=== PATIENT | male | born 1945 | race Two or more races ===

== ENCOUNTER 2023-08-14 17:50 | Inpatient (IN) | payer MEDICARE ==
[~2023-08-14] VITALS: Ht 162.6 cm; Wt 51.1 kg
[2023-08-14] MEDS ORDERED: SODIUM CHLORIDE 0.9% 100 ML ONE (18:27)
[2023-08-14] MEDS ORDERED: IOHEXOL 350 MG/ML 100 ML VIAL ONE (18:27)
[2023-08-14 18:33] LABS: BASOPHILS % (AUTO) 0.4 % (0.0-2.0); EOSINOPHILS % (AUTO) 0.3 % (1.0-6.0); HEMATOCRIT 40.9 % (41-53); HEMOGLOBIN 13.6 g/dL (13.5-17.5); LYMPHOCYTES # (AUTO) 0.8 K/uL (1.0-4.8); LYMPHOCYTES % (AUTO) 7.5 % (22.0-44.0); MEAN CORPUSCULAR HEMOGLOBIN 30.8 pg (26.0-34.0); MEAN CORPUSCULAR HGB CONC 33.3 G/dL (31.0-37.0); MEAN CORPUSCULAR VOLUME 93 fL (80-100); MONOCYTES # (AUTO) 0.4 K/uL (0.1-1.0); MONOCYTES % (AUTO) 3.7 % (2.0-9.0); PLATELET COUNT (AUTO) 251 K/uL (150-450); RED BLOOD CELL COUNT(AUTO) 4.42 MIL/uL (4.50-5.90); RED CELL DISTRIBUTION WIDTH 15.4 % (11.5-14.5); WHITE BLOOD COUNT (AUTO) 10.2 K/uL (4.5-11.0)
[2023-08-14 18:39] LABS: ANION GAP 10 mmol/L (8-16); CALCIUM, TOTAL 10.5 mg/dL (8.8-10.5); CARBON DIOXIDE 28 mmol/L (22-29); CHLORIDE 102 mmol/L (98-107); CREATININE 1.11 mg/dL (0.60-1.30); GLOMERULAR FILTR. RATE CALC > 60 mL/min (>60); GLUCOSE,RANDOM 160 mg/dL (70-110); POTASSIUM 3.6 mmol/L (3.5-5.1); SODIUM SERUM 140 mmol/L (136-145); UREA NITROGEN, BLOOD 19 mg/dL (7-18)
[2023-08-14 18:44] LABS: ALANINE AMINOTRANSFERASE 25 U/L (12-78); ALBUMIN 4.4 g/dL (3.4-5.0); ALKALINE PHOSPHATASE 63 U/L (46-116); ASPARTATE AMINOTRANSFERASE 27 U/L (15-37); BILIRUBIN,TOTAL 0.5 mg/dL (0.1-1.0); TOTAL PROTEIN, SERUM 8.2 g/dL (6.4-8.2)
[2023-08-14 18:45] LABS: NEUTROPHILS % (AUTO) 88.1 % (40.0-70.0)
[2023-08-14 18:46] LABS: TROPONIN I-HIGH SENSITIVITY 9 ng/L (<76)
[2023-08-14 19:00] VITALS: PULSE 73; RESP 20; O2SAT 100
[2023-08-14] MEDS ORDERED: FentaNYL CIT 1000MCG/0.9% NACL 100 ML IV PRN (19:15)
[2023-08-14] MEDS ORDERED: 0.9% SODIUM CHLORIDE 10 ML SYRINGE IVP PRN (19:15)
[2023-08-14] MEDS: NiCARDipine HCL 25 MG in SODIUM CHLORIDE 0.9% 240 ML IV PRN ×2 (19:16→19:25)
[2023-08-14] MEDS: PROPOFOL 1000 MG/ISO-OSM 100 ML IV PRN ×2 (19:16→19:25)
[2023-08-14] MEDS: LevETIRAcetam 1,000 MG in DEXTROSE 5%-WATER 100 ML IV ONE (19:43)
[2023-08-14] MEDS: ROCURONIUM BROMIDE 10 MG/ML 5 ML VIAL IVP ONE (19:44)
[2023-08-14] MEDS: ETOMIDATE 2 MG/ML 10 ML VIAL IVP ONE (19:44)
[2023-08-14 20:10] LABS: ABG BASE EXCESS -3.8 mmol/L (-2.0-3.0); ABG CARBOXYHEMOGLOBIN 0.8 % (0.0-1.5); ABG HCO3 21.3 mmol/L (22.0-26.0); ABG METHEMOGLOBIN 0.8 % (0.0-1.5); ABG OXYGEN CONTENT 21.6 mL/dL (15.0-23.0); ABG OXYGEN SATURATION 99.9 % (95.0-98.0); ABG OXYHEMOGLOBIN 98.3 % (94.0-100.0); ABG PCO2 45 mmHg (35-45); ABG PH 7.317 (7.35-7.450); ABG TOTAL HEMOGLOBIN 15.1 G/dL (12.0-18.0); PO2, ARTERIAL BG 317.6 mmHg (75.0-83.0); SOURCE, BLOOD GAS ARTERIAL; TEMPERATURE, FAHRENHEIT, BG 98.6 FAHREN (96.0-98.6)
[2023-08-14 20:11] LABS: O2 DEVICE,BLOOD GAS VENTILATOR (ROOM AIR); PEEP,BG 5 cm H2O; SITE, BLOOD GAS RT BRACHIAL; SPONTANEOUS VT, BG 359 ml; VT, ABG 400 ml
[2023-08-14 20:27] LABS: APPEARANCE,URINE CLEAR (CLEAR); BILIRUBIN,URINE NEGATIVE (NEGATIVE); COLOR,URINE COLORLESS (YELLOW); GLUCOSE, URINE (UA) NEGATIVE (NEGATIVE); KETONES,URINE NEGATIVE (NEGATIVE); LEUKOCYTE ESTERASE ,URINE NEGATIVE (NEGATIVE); NITRATE,URINE NEGATIVE (NEGATIVE); OCCULT BLOOD,URINE MODERATE (NEGATIVE); PROTEIN,URINE 30-70 mg/dL (NEGATIVE); SPECIFIC GRAVITIY, URINE 1.015 (1.003-1.030); UROBILINOGEN,URINE <=1.0 mg/dL (<=1.0)
[2023-08-14 20:33] LABS: AMPHET/METH SCREEN,URINE NEGATIVE (NEGATIVE); BARBITURATE SCREEN, URINE NEGATIVE (NEGATIVE); BENZODIAZEPINES SCREEN,URINE NEGATIVE (NEGATIVE); CANNABINOID SCREEN,URINE NEGATIVE (NEGATIVE); COCAINE SCREEN,URINE NEGATIVE (NEGATIVE); METHADONE SCREEN, URINE NEGATIVE (NEGATIVE); OPIATE SCREEN,URINE NEGATIVE (NEGATIVE); PHENCYCLIDINE SCREEN,URINE NEGATIVE (NEGATIVE)
[2023-08-14 20:36] LABS: ALCOHOL, URINE DRUG SCREEN NEGATIVE (NEGATIVE)
[2023-08-14 20:49] LABS: BACTERIA,URINE None Seen /HPF (None Seen); RBC,URINE None Seen /HPF (0-2); SQUAMOUS EPITHELIAL CELL,UR Few /LPF (None Seen); WBC,URINE None Seen /HPF (0-5)
[2023-08-14] MEDS: DOCUSATE SODIUM 100 MG CAPSULE PO SCH (21:00)
[2023-08-14] MEDS ORDERED: MIDAZOLAM HCL 2 MG/2 ML VIAL IVP PRN (21:15)
[2023-08-14 22:30] VITALS: PULSE 65; RESP 20; O2SAT 100
[2023-08-14 23:07] LABS: TROPONIN I-HIGH SENSITIVITY 27 ng/L (<76)
[2023-08-14] MEDS: CHLORHEXIDINE GLUCONATE 2% TOWELETTE [2'S/6'S] TP SCH (23:15)
[2023-08-14] MEDS: MANNITOL 25%-12.5 GM/50 ML VIAL IVP ONE (23:16)
[2023-08-14] MEDS: FAMOTIDINE 20 MG/2 ML VIAL IVP SCH (23:16)
[2023-08-15] VITALS (15 sets, daily range): BP systolic 92–137; BP diastolic 50–97; PULSE 59–90; RESP 20–28; TEMP 99.2–100; O2SAT 98–100
[2023-08-15] MEDS: ACETAMINOPHEN 325 MG TABLET PO PRN (01:23)
[2023-08-15 06:14] LABS: BASOPHILS % (AUTO) 0.1 % (0.0-2.0); EOSINOPHILS % (AUTO) 0 % (1.0-6.0); HEMATOCRIT 39.8 % (41-53); HEMOGLOBIN 13.5 g/dL (13.5-17.5); LYMPHOCYTES # (AUTO) 0.7 K/uL (1.0-4.8); LYMPHOCYTES % (AUTO) 6.3 % (22.0-44.0); MEAN CORPUSCULAR HEMOGLOBIN 30.9 pg (26.0-34.0); MEAN CORPUSCULAR HGB CONC 33.9 G/dL (31.0-37.0); MEAN CORPUSCULAR VOLUME 91 fL (80-100); MONOCYTES # (AUTO) 0.6 K/uL (0.1-1.0); MONOCYTES % (AUTO) 5.5 % (2.0-9.0); NEUTROPHILS # (AUTO) 9.3 K/uL (1.8-7.7); PLATELET COUNT (AUTO) 272 K/uL (150-450); RED BLOOD CELL COUNT(AUTO) 4.38 MIL/uL (4.50-5.90); RED CELL DISTRIBUTION WIDTH 15.2 % (11.5-14.5); WHITE BLOOD COUNT (AUTO) 10.5 K/uL (4.5-11.0)
[2023-08-15 06:19] LABS: NEUTROPHILS % (AUTO) 88.1 % (40.0-70.0)
[2023-08-15 06:26] LABS: CALCIUM, TOTAL 10.4 mg/dL (8.8-10.5); CREATININE 1.33 mg/dL (0.60-1.30); MAGNESIUM 2.3 mg/dL (1.80-2.40); POTASSIUM 3.5 mmol/L (3.5-5.1)
[2023-08-15] MEDS ORDERED: LORazepam 2 MG/ML VIAL IVP PRN (09:15)
[2023-08-16] VITALS (15 sets, daily range): BP systolic 109–150; BP diastolic 62–105; PULSE 66–106; RESP 20–28; TEMP 98–99.8; O2SAT 98–100
[2023-08-16 05:54] LABS: BASOPHILS % (AUTO) 0.2 % (0.0-2.0); EOSINOPHILS % (AUTO) 0.1 % (1.0-6.0); HEMATOCRIT 43.4 % (41-53); HEMOGLOBIN 14.4 g/dL (13.5-17.5); LYMPHOCYTES # (AUTO) 1.3 K/uL (1.0-4.8); LYMPHOCYTES % (AUTO) 9.6 % (22.0-44.0); MEAN CORPUSCULAR HEMOGLOBIN 30.3 pg (26.0-34.0); MEAN CORPUSCULAR HGB CONC 33.2 G/dL (31.0-37.0); MEAN CORPUSCULAR VOLUME 91 fL (80-100); MONOCYTES # (AUTO) 1.2 K/uL (0.1-1.0); NEUTROPHILS # (AUTO) 10.7 K/uL (1.8-7.7); NEUTROPHILS % (AUTO) 81.1 % (40.0-70.0); PLATELET COUNT (AUTO) 248 K/uL (150-450); RED BLOOD CELL COUNT(AUTO) 4.76 MIL/uL (4.50-5.90); RED CELL DISTRIBUTION WIDTH 15.8 % (11.5-14.5); WHITE BLOOD COUNT (AUTO) 13.2 K/uL (4.5-11.0)
[2023-08-16 05:59] LABS: CALCIUM, TOTAL 10.4 mg/dL (8.8-10.5); CREATININE 4.03 mg/dL (0.60-1.30); POTASSIUM 3.9 mmol/L (3.5-5.1)
[2023-08-16] MEDS: CefTRIAXone 1 GM/DEXTROSE 50 ML IV SCH (09:41)
[2023-08-16 14:05] LABS: HEMOGLOBIN A1C 5.7 % (3.8-5.6)
[2023-08-16] MEDS: DEXMEDETOMIDINE HCL 400 MCG in SODIUM CHLORIDE 0.9% 96 ML IV PRN (17:13)
[2023-08-16] MEDS: INSULIN LISPRO 100 UNITS/ML SQ PRN (18:22)
[2023-08-17] VITALS (15 sets, daily range): BP systolic 109–158; BP diastolic 56–93; PULSE 56–94; RESP 15–28; TEMP 98.5–100.3; O2SAT 97–99
[2023-08-17 00:06] LABS: GLUCOMETER DEV NAME(LOC) ICU.S6; GLUCOSE,POINT OF CARE 188 MG/DL (70-110)
[2023-08-17 05:37] LABS: BASOPHILS % (AUTO) 0.5 % (0.0-2.0); EOSINOPHILS % (AUTO) 0.4 % (1.0-6.0); HEMATOCRIT 38.8 % (41-53); HEMOGLOBIN 12.7 g/dL (13.5-17.5); LYMPHOCYTES # (AUTO) 0.7 K/uL (1.0-4.8); LYMPHOCYTES % (AUTO) 7.8 % (22.0-44.0); MEAN CORPUSCULAR HEMOGLOBIN 30.5 pg (26.0-34.0); MEAN CORPUSCULAR HGB CONC 32.7 G/dL (31.0-37.0); MEAN CORPUSCULAR VOLUME 93 fL (80-100); MONOCYTES # (AUTO) 0.8 K/uL (0.1-1.0); MONOCYTES % (AUTO) 8.5 % (2.0-9.0); NEUTROPHILS # (AUTO) 7.8 K/uL (1.8-7.7); NEUTROPHILS % (AUTO) 82.8 % (40.0-70.0); PLATELET COUNT (AUTO) 205 K/uL (150-450); RED BLOOD CELL COUNT(AUTO) 4.17 MIL/uL (4.50-5.90); RED CELL DISTRIBUTION WIDTH 15.7 % (11.5-14.5); WHITE BLOOD COUNT (AUTO) 9.4 K/uL (4.5-11.0)
[2023-08-17 05:52] LABS: ALBUMIN 3.6 g/dL (3.4-5.0); BILIRUBIN,TOTAL 0.5 mg/dL (0.1-1.0); CALCIUM, TOTAL 9.6 mg/dL (8.8-10.5); CREATININE 3.57 mg/dL (0.60-1.30); POTASSIUM 3.3 mmol/L (3.5-5.1); TOTAL PROTEIN, SERUM 7.2 g/dL (6.4-8.2)
[2023-08-17 06:20] LABS: GLUCOMETER DEV NAME(LOC) ICUN.5; GLUCOSE,POINT OF CARE 160 MG/DL (70-110)
[2023-08-17 06:20] LABS: GLUCOMETER DEV NAME(LOC) ICU.S6; GLUCOSE,POINT OF CARE 111 MG/DL (70-110)
[2023-08-17] MEDS: SODIUM CHLORIDE 0.9% 1,000 ML IV ONE (08:50)
[2023-08-17 12:00] LABS: GLUCOMETER DEV NAME(LOC) ICU.S6; GLUCOSE,POINT OF CARE 156 MG/DL (70-110)
[2023-08-17] MEDS: AmLODIPine BESYLATE 2.5 MG TABLET PO SCH (17:30)
[2023-08-17 19:10] LABS: GLUCOMETER DEV NAME(LOC) ICU.S6; GLUCOSE,POINT OF CARE 126 MG/DL (70-110)
[2023-08-17] MEDS: ALBUTEROL SULFATE 2.5 MG/0.5 ML NEB SOLUTION NEB PRN (20:39)
[2023-08-17] MEDS: IPRATROPIUM BROMIDE 0.5 MG/2.5 ML NEB SOLUTION NEB PRN (20:39)
[2023-08-17] MEDS: HydrALAZINE HCL 20 MG/ML VIAL IVP PRN (21:44)
[2023-08-18] VITALS (10 sets, daily range): BP systolic 96–144; BP diastolic 56–98; PULSE 67–87; RESP 14–26; TEMP 97.9–99.3; O2SAT 98–100
[2023-08-18 05:40] LABS: BASOPHILS % (AUTO) 0.7 % (0.0-2.0); EOSINOPHILS % (AUTO) 0.8 % (1.0-6.0); HEMATOCRIT 38.5 % (41-53); HEMOGLOBIN 12.7 g/dL (13.5-17.5); LYMPHOCYTES # (AUTO) 0.9 K/uL (1.0-4.8); LYMPHOCYTES % (AUTO) 12.9 % (22.0-44.0); MEAN CORPUSCULAR HEMOGLOBIN 30.5 pg (26.0-34.0); MEAN CORPUSCULAR HGB CONC 33.1 G/dL (31.0-37.0); MEAN CORPUSCULAR VOLUME 92 fL (80-100); MONOCYTES # (AUTO) 0.6 K/uL (0.1-1.0); MONOCYTES % (AUTO) 8.1 % (2.0-9.0); NEUTROPHILS # (AUTO) 5.4 K/uL (1.8-7.7); NEUTROPHILS % (AUTO) 77.5 % (40.0-70.0); PLATELET COUNT (AUTO) 203 K/uL (150-450); RED BLOOD CELL COUNT(AUTO) 4.18 MIL/uL (4.50-5.90); RED CELL DISTRIBUTION WIDTH 15.7 % (11.5-14.5); WHITE BLOOD COUNT (AUTO) 6.9 K/uL (4.5-11.0)
[2023-08-18 05:54] LABS: CALCIUM, TOTAL 10.3 mg/dL (8.8-10.5); CREATININE 1.94 mg/dL (0.60-1.30); POTASSIUM 3.4 mmol/L (3.5-5.1)
[2023-08-18 05:55] LABS: GLUCOMETER DEV NAME(LOC) ICU.S6; GLUCOSE,POINT OF CARE 119 MG/DL (70-110)
[2023-08-18 06:06] LABS: GLUCOMETER DEV NAME(LOC) ICUN.5; GLUCOSE,POINT OF CARE 107 MG/DL (70-110)
[2023-08-18] MEDS: MORPHINE SULFATE 2 MG/ML SYRINGE IVP PRN (07:51)
[2023-08-18] MEDS ORDERED: LABETALOL HCL 5 MG/ML 20 ML VIAL IVP PRN (09:15)
[2023-08-18 09:47] LABS: ABG BASE EXCESS -1.3 mmol/L (-2.0-3.0); ABG CARBOXYHEMOGLOBIN 0.4 % (0.0-1.5); ABG HCO3 24.1 mmol/L (22.0-26.0); ABG METHEMOGLOBIN 0.2 % (0.0-1.5); ABG OXYGEN CONTENT 19.5 mL/dL (15.0-23.0); ABG OXYGEN SATURATION 98.8 % (95.0-98.0); ABG OXYHEMOGLOBIN 98.2 % (94.0-100.0); ABG PCO2 33 mmHg (35-45); ABG PH 7.451 (7.35-7.450); ABG TOTAL HEMOGLOBIN 13.9 G/dL (12.0-18.0); PO2, ARTERIAL BG 157.3 mmHg (75.0-83.0); SOURCE, BLOOD GAS ARTERIAL; TEMPERATURE, FAHRENHEIT, BG 99.1 FAHREN (96.0-98.6)
[2023-08-18 09:51] LABS: ABG A-A DIFF O2 53.4 mmHg (10-20.0); ALLEN TEST, BLOOD GAS Positive; O2 DEVICE,BLOOD GAS VENTILATOR (ROOM AIR); SITE, BLOOD GAS RT BRACHIAL; VENT MODE, BG Press. Support Vent. (ROOM AIR)
[2023-08-18 09:52] LABS: PEEP,BG 0 cm H2O; PRESSURE SUPPORT, BG 5 cm H2O; SPONTANEOUS VT, BG 513 ml; VT, ABG 400 ml
[2023-08-18] MEDS ORDERED: SODIUM CHLORIDE 0.9% 250 ML IV ONE (11:31)
[2023-08-18] MEDS: POTASSIUM CHL 10 MEQ/WATER 50 ML IV SCH (11:32)
[2023-08-18 14:01] LABS: GLUCOMETER DEV NAME(LOC) ICU.S6; GLUCOSE,POINT OF CARE 165 MG/DL (70-110)
[2023-08-18] MEDS: AmLODIPine BESYLATE 5 MG TABLET PO ONE (15:31)
[2023-08-18 18:21] LABS: GLUCOMETER DEV NAME(LOC) ICU.S6; GLUCOSE,POINT OF CARE 157 MG/DL (70-110)
[2023-08-19] VITALS: BP 94/63; PULSE 58; RESP 12; TEMP 98.6
[2023-08-19 01:11] LABS: GLUCOMETER DEV NAME(LOC) ICU.S6; GLUCOSE,POINT OF CARE 137 MG/DL (70-110)
[2023-08-19 04:00] VITALS: BP 153/94; PULSE 74; RESP 14; TEMP 98.8
[2023-08-19 05:28] LABS: BASOPHILS % (AUTO) 0.3 % (0.0-2.0); EOSINOPHILS % (AUTO) 0.5 % (1.0-6.0); HEMATOCRIT 41.6 % (41-53); HEMOGLOBIN 13.9 g/dL (13.5-17.5); LYMPHOCYTES # (AUTO) 0.7 K/uL (1.0-4.8); MEAN CORPUSCULAR HEMOGLOBIN 30.7 pg (26.0-34.0); MEAN CORPUSCULAR HGB CONC 33.4 G/dL (31.0-37.0); MEAN CORPUSCULAR VOLUME 92 fL (80-100); MONOCYTES # (AUTO) 0.6 K/uL (0.1-1.0); MONOCYTES % (AUTO) 7.4 % (2.0-9.0); NEUTROPHILS # (AUTO) 6.7 K/uL (1.8-7.7); NEUTROPHILS % (AUTO) 82.8 % (40.0-70.0); PLATELET COUNT (AUTO) 228 K/uL (150-450); RED BLOOD CELL COUNT(AUTO) 4.53 MIL/uL (4.50-5.90); RED CELL DISTRIBUTION WIDTH 15.4 % (11.5-14.5); WHITE BLOOD COUNT (AUTO) 8.1 K/uL (4.5-11.0)
[2023-08-19 05:44] LABS: ANION GAP 12 mmol/L (8-16); CALCIUM, TOTAL 10.9 mg/dL (8.8-10.5); CARBON DIOXIDE 25 mmol/L (22-29); CHLORIDE 117 mmol/L (98-107); CREATININE 1.13 mg/dL (0.60-1.30); GLOMERULAR FILTR. RATE CALC > 60 mL/min (>60); GLUCOSE,RANDOM 180 mg/dL (70-110); POTASSIUM 3.4 mmol/L (3.5-5.1); SODIUM SERUM 154 mmol/L (136-145); UREA NITROGEN, BLOOD 30 mg/dL (7-18)
[2023-08-19 06:36] LABS: GLUCOMETER DEV NAME(LOC) ICUN.5; GLUCOSE,POINT OF CARE 144 MG/DL (70-110)
[2023-08-19 08:00] VITALS: BP 139/85; PULSE 79; RESP 16; TEMP 98.3
[2023-08-19] MEDS: AmLODIPine BESYLATE 5 MG TABLET PO SCH (08:10)
[2023-08-19] MEDS: DEXTROSE 5%-WATER 1,000 ML IV ONE (09:33)
[2023-08-19 12:00] VITALS: BP 89/56; PULSE 59; RESP 16; TEMP 98.8
[2023-08-19] MEDS: POTASSIUM CHL 10 MEQ/WATER 50 ML IV SCH (12:28)
[2023-08-19 15:06] LABS: GLUCOMETER DEV NAME(LOC) ICUN.5; GLUCOSE,POINT OF CARE 137 MG/DL (70-110)
[2023-08-19] MEDS: HydrALAZINE HCL 50 MG TABLET PO SCH (15:17)
[2023-08-19 16:00] VITALS: BP 145/96; PULSE 91; RESP 17; TEMP 99.1
[2023-08-19 18:41] LABS: GLUCOMETER DEV NAME(LOC) ICUN.5; GLUCOSE,POINT OF CARE 145 MG/DL (70-110)
[2023-08-19 20:00] VITALS: BP 147/90; PULSE 91; PULSE 96; RESP 16; TEMP 99.5
[2023-08-20] VITALS (7 sets, daily range): BP systolic 126–144; BP diastolic 68–87; PULSE 72–95; RESP 14–20; TEMP 97.3–99.8
[2023-08-20] MEDS: DEXTROSE 5%-WATER 1,000 ML IV SCH (02:35)
[2023-08-20 04:06] LABS: GLUCOMETER DEV NAME(LOC) ICUN.5; GLUCOSE,POINT OF CARE 170 MG/DL (70-110)
[2023-08-20 05:48] LABS: BASOPHILS % (AUTO) 0.4 % (0.0-2.0); EOSINOPHILS % (AUTO) 0.9 % (1.0-6.0); HEMATOCRIT 40.1 % (41-53); HEMOGLOBIN 13.2 g/dL (13.5-17.5); LYMPHOCYTES % (AUTO) 12.2 % (22.0-44.0); MEAN CORPUSCULAR HEMOGLOBIN 30.3 pg (26.0-34.0); MEAN CORPUSCULAR VOLUME 92 fL (80-100); MONOCYTES # (AUTO) 0.7 K/uL (0.1-1.0); MONOCYTES % (AUTO) 8.8 % (2.0-9.0); NEUTROPHILS # (AUTO) 6.2 K/uL (1.8-7.7); NEUTROPHILS % (AUTO) 77.7 % (40.0-70.0); PLATELET COUNT (AUTO) 210 K/uL (150-450); RED BLOOD CELL COUNT(AUTO) 4.36 MIL/uL (4.50-5.90); RED CELL DISTRIBUTION WIDTH 15.8 % (11.5-14.5)
[2023-08-20 06:39] LABS: ANION GAP 12 mmol/L (8-16); CALCIUM, TOTAL 10.5 mg/dL (8.8-10.5); CARBON DIOXIDE 23 mmol/L (22-29); CHLORIDE 121 mmol/L (98-107); CREATININE 1.09 mg/dL (0.60-1.30); GLOMERULAR FILTR. RATE CALC > 60 mL/min (>60); GLUCOSE,RANDOM 156 mg/dL (70-110); POTASSIUM 3.4 mmol/L (3.5-5.1); SODIUM SERUM 156 mmol/L (136-145); UREA NITROGEN, BLOOD 24 mg/dL (7-18)
[2023-08-20 06:40] LABS: GLUCOMETER DEV NAME(LOC) ICU.S6; GLUCOSE,POINT OF CARE 139 MG/DL (70-110)
[2023-08-20] MEDS ORDERED: POTASSIUM CHLORIDE 20 MEQ ER TABLET PO PRN (08:45)
[2023-08-20] MEDS: POTASSIUM CHL 10 MEQ/WATER 50 ML IV PRN (09:29)
[2023-08-20] MEDS: POTASSIUM CHL 10 MEQ/WATER 50 ML IV SCH (09:29)
[2023-08-20] MEDS: LOSARTAN POTASSIUM 25 MG TABLET PO SCH (09:29)
[2023-08-20] MEDS: LORazepam 2 MG/ML VIAL IVP PRN (11:14)
[2023-08-20 13:51] LABS: GLUCOMETER DEV NAME(LOC) ICU.S6; GLUCOSE,POINT OF CARE 112 MG/DL (70-110)
[2023-08-20] MEDS: CARVEDILOL 6.25 MG TABLET PO SCH (14:27)
[2023-08-20] MEDS: TAMSULOSIN HCL 0.4 MG CAPSULE PO SCH (15:30)
[2023-08-20 19:31] LABS: GLUCOMETER DEV NAME(LOC) ICUN.5; GLUCOSE,POINT OF CARE 143 MG/DL (70-110)
[2023-08-21] VITALS: BP 133/76; PULSE 87; RESP 19; TEMP 98.5
[2023-08-21 04:00] VITALS: BP 113/59; PULSE 74; PULSE 80; RESP 16; TEMP 98
[2023-08-21 05:30] LABS: EOSINOPHILS % (AUTO) 1.8 % (1.0-6.0); HEMOGLOBIN 12.6 g/dL (13.5-17.5); LYMPHOCYTES # (AUTO) 1.2 K/uL (1.0-4.8); LYMPHOCYTES % (AUTO) 15.1 % (22.0-44.0); MEAN CORPUSCULAR HEMOGLOBIN 30.8 pg (26.0-34.0); MEAN CORPUSCULAR HGB CONC 33.3 G/dL (31.0-37.0); MEAN CORPUSCULAR VOLUME 93 fL (80-100); MONOCYTES # (AUTO) 0.7 K/uL (0.1-1.0); MONOCYTES % (AUTO) 9.3 % (2.0-9.0); NEUTROPHILS # (AUTO) 5.7 K/uL (1.8-7.7); NEUTROPHILS % (AUTO) 72.8 % (40.0-70.0); PLATELET COUNT (AUTO) 217 K/uL (150-450); RED CELL DISTRIBUTION WIDTH 15.3 % (11.5-14.5); WHITE BLOOD COUNT (AUTO) 7.9 K/uL (4.5-11.0)
[2023-08-21 06:00] LABS: ANION GAP 13 mmol/L (8-16); CALCIUM, TOTAL 10.6 mg/dL (8.8-10.5); CARBON DIOXIDE 19 mmol/L (22-29); CHLORIDE 119 mmol/L (98-107); CREATININE 0.99 mg/dL (0.60-1.30); GLOMERULAR FILTR. RATE CALC > 60 mL/min (>60); GLUCOSE,RANDOM 172 mg/dL (70-110); POTASSIUM 3.5 mmol/L (3.5-5.1); SODIUM SERUM 151 mmol/L (136-145); UREA NITROGEN, BLOOD 19 mg/dL (7-18)
[2023-08-21 07:11] LABS: GLUCOMETER DEV NAME(LOC) ICUN.5; GLUCOSE,POINT OF CARE 157 MG/DL (70-110)
[2023-08-21 08:00] VITALS: BP 133/76; PULSE 91; RESP 17; TEMP 98.5
[2023-08-21] MEDS: AmLODIPine BESYLATE 10 MG TABLET PO SCH (08:55)
[2023-08-21] MEDS: LOSARTAN POTASSIUM 50 MG TABLET PO SCH (08:55)
[2023-08-21] MEDS: QUEtiapine FUMARATE 25 MG TABLET PO SCH (09:25)
[2023-08-21] MEDS: DEXTROSE 5%-WATER 1,000 ML IV SCH (10:25)
[2023-08-21 12:00] VITALS: BP 123/69; PULSE 66; RESP 13; TEMP 98.2
[2023-08-21 12:35] LABS: GLUCOMETER DEV NAME(LOC) ICUN.5; GLUCOSE,POINT OF CARE 173 MG/DL (70-110)
[2023-08-21 16:00] VITALS: BP 123/68; PULSE 79; RESP 15; TEMP 98.4
[2023-08-21 17:59] LABS: ANION GAP 11 mmol/L (8-16); CALCIUM, TOTAL 10.7 mg/dL (8.8-10.5); CARBON DIOXIDE 20 mmol/L (22-29); CHLORIDE 118 mmol/L (98-107); CREATININE 1.03 mg/dL (0.60-1.30); GLOMERULAR FILTR. RATE CALC > 60 mL/min (>60); GLUCOSE,RANDOM 187 mg/dL (70-110); POTASSIUM 3.8 mmol/L (3.5-5.1); SODIUM SERUM 149 mmol/L (136-145); UREA NITROGEN, BLOOD 21 mg/dL (7-18)
[2023-08-21 20:14] VITALS: BP 137/86; PULSE 89; RESP 18; TEMP 98.8
[2023-08-22] VITALS (10 sets, daily range): BP systolic 123–158; BP diastolic 75–98; PULSE 75–106; RESP 16–23; TEMP 97.8–101.7
[2023-08-22] MEDS: ACETAMINOPHEN 650 MG RECTAL SUPPOSITORY PR PRN (02:38)
[2023-08-22] MEDS: ACETAMINOPHEN 650 MG RECTAL SUPPOSITORY PR ONE (04:19)
[2023-08-22 04:41] LABS: GLUCOMETER DEV NAME(LOC) 5N.1D; GLUCOSE,POINT OF CARE 137 MG/DL (70-110)
[2023-08-22 06:21] LABS: BASOPHILS % (AUTO) 0.5 % (0.0-2.0); EOSINOPHILS % (AUTO) 0.3 % (1.0-6.0); HEMATOCRIT 38.5 % (41-53); HEMOGLOBIN 12.7 g/dL (13.5-17.5); LYMPHOCYTES # (AUTO) 1.1 K/uL (1.0-4.8); LYMPHOCYTES % (AUTO) 14.7 % (22.0-44.0); MEAN CORPUSCULAR HEMOGLOBIN 30.1 pg (26.0-34.0); MEAN CORPUSCULAR HGB CONC 32.9 G/dL (31.0-37.0); MEAN CORPUSCULAR VOLUME 92 fL (80-100); MONOCYTES # (AUTO) 0.7 K/uL (0.1-1.0); MONOCYTES % (AUTO) 9.4 % (2.0-9.0); NEUTROPHILS # (AUTO) 5.5 K/uL (1.8-7.7); NEUTROPHILS % (AUTO) 75.1 % (40.0-70.0); PLATELET COUNT (AUTO) 212 K/uL (150-450); RED CELL DISTRIBUTION WIDTH 15.6 % (11.5-14.5); WHITE BLOOD COUNT (AUTO) 7.4 K/uL (4.5-11.0)
[2023-08-22 06:46] LABS: ANION GAP 10 mmol/L (8-16); CARBON DIOXIDE 22 mmol/L (22-29); CHLORIDE 120 mmol/L (98-107); CREATININE 0.99 mg/dL (0.60-1.30); GLOMERULAR FILTR. RATE CALC > 60 mL/min (>60); GLUCOSE,RANDOM 150 mg/dL (70-110); POTASSIUM 3.3 mmol/L (3.5-5.1); SODIUM SERUM 152 mmol/L (136-145); UREA NITROGEN, BLOOD 17 mg/dL (7-18)
[2023-08-22] MEDS ORDERED: SODIUM CHLORIDE 0.9% 250 ML IV ONE (09:16)
[2023-08-22 12:40] LABS: GLUCOMETER DEV NAME(LOC) 5S.1B; GLUCOSE,POINT OF CARE 138 MG/DL (70-110)
[2023-08-22 12:41] LABS: GLUCOMETER DEV NAME(LOC) 5S.1B; GLUCOSE,POINT OF CARE 153 MG/DL (70-110)
[2023-08-22] MEDS: *CLINICAL-LEVOFLOXACIN IVPB DOSING CLINICAL ONE (22:00)
[2023-08-22] MEDS: DEXTROSE 5%-0.45% SODIUM CHL 1,000 ML IV SCH (22:04)
[2023-08-22] MEDS: LEVOFLOXACIN 750 MG/D5% WATER 150 ML IV SCH (23:26)
[2023-08-23] VITALS (7 sets, daily range): BP systolic 120–152; BP diastolic 63–96; PULSE 72–87; RESP 18–20; TEMP 98–99.9
[2023-08-23 05:40] LABS: GLUCOMETER DEV NAME(LOC) 5N.1D; GLUCOSE,POINT OF CARE 113 MG/DL (70-110)
[2023-08-23 05:40] LABS: GLUCOMETER DEV NAME(LOC) 5N.1D; GLUCOSE,POINT OF CARE 189 MG/DL (70-110)
[2023-08-23 05:45] LABS: GLUCOMETER DEV NAME(LOC) 5N.1D; GLUCOSE,POINT OF CARE 130 MG/DL (70-110)
[2023-08-23 08:10] LABS: BASOPHILS % (AUTO) 0.7 % (0.0-2.0); EOSINOPHILS % (AUTO) 0.7 % (1.0-6.0); HEMATOCRIT 39.7 % (41-53); HEMOGLOBIN 13.2 g/dL (13.5-17.5); LYMPHOCYTES # (AUTO) 1.2 K/uL (1.0-4.8); LYMPHOCYTES % (AUTO) 12.9 % (22.0-44.0); MEAN CORPUSCULAR HEMOGLOBIN 30.7 pg (26.0-34.0); MEAN CORPUSCULAR HGB CONC 33.2 G/dL (31.0-37.0); MEAN CORPUSCULAR VOLUME 93 fL (80-100); MONOCYTES # (AUTO) 1.1 K/uL (0.1-1.0); MONOCYTES % (AUTO) 11.6 % (2.0-9.0); NEUTROPHILS # (AUTO) 6.9 K/uL (1.8-7.7); NEUTROPHILS % (AUTO) 74.1 % (40.0-70.0); PLATELET COUNT (AUTO) 235 K/uL (150-450); RED BLOOD CELL COUNT(AUTO) 4.28 MIL/uL (4.50-5.90); RED CELL DISTRIBUTION WIDTH 15.4 % (11.5-14.5); WHITE BLOOD COUNT (AUTO) 9.3 K/uL (4.5-11.0)
[2023-08-23 08:25] LABS: ANION GAP 11 mmol/L (8-16); CALCIUM, TOTAL 10.7 mg/dL (8.8-10.5); CARBON DIOXIDE 23 mmol/L (22-29); CHLORIDE 120 mmol/L (98-107); CREATININE 1.06 mg/dL (0.60-1.30); GLOMERULAR FILTR. RATE CALC > 60 mL/min (>60); GLUCOSE,RANDOM 135 mg/dL (70-110); POTASSIUM 3.7 mmol/L (3.5-5.1); SODIUM SERUM 154 mmol/L (136-145); UREA NITROGEN, BLOOD 23 mg/dL (7-18)
[2023-08-23 13:16] LABS: GLUCOMETER DEV NAME(LOC) 5S.1B; GLUCOSE,POINT OF CARE 153 MG/DL (70-110)
[2023-08-23 18:25] LABS: GLUCOMETER DEV NAME(LOC) 5N.2C; GLUCOSE,POINT OF CARE 168 MG/DL (70-110)
[2023-08-23 21:00] LABS: GLUCOMETER DEV NAME(LOC) 5N.1D; GLUCOSE,POINT OF CARE 161 MG/DL (70-110)
[2023-08-24] MEDS ORDERED: SODIUM CHLORIDE 0.9% 250 ML IV ONE (00:03)
[2023-08-24 03:42] VITALS: BP 144/90; PULSE 77; RESP 19; TEMP 98.9
[2023-08-24 06:40] LABS: GLUCOMETER DEV NAME(LOC) 5N.1D; GLUCOSE,POINT OF CARE 151 MG/DL (70-110)
[2023-08-24 07:06] LABS: PARATHYROID HORMONE INTACT 60 pg/mL (15-65)
[2023-08-24 07:23] LABS: ANION GAP 11 mmol/L (8-16); CALCIUM, TOTAL 11.3 mg/dL (8.8-10.5); CARBON DIOXIDE 22 mmol/L (22-29); CHLORIDE 123 mmol/L (98-107); CREATININE 1.11 mg/dL (0.60-1.30); GLOMERULAR FILTR. RATE CALC > 60 mL/min (>60); GLUCOSE,RANDOM 167 mg/dL (70-110); POTASSIUM 3.7 mmol/L (3.5-5.1); SODIUM SERUM 156 mmol/L (136-145); UREA NITROGEN, BLOOD 22 mg/dL (7-18)
[2023-08-24 07:48] VITALS: BP 151/88; PULSE 75; RESP 18; TEMP 98.8
[2023-08-24] MEDS: LEVOFLOXACIN 750 MG/D5% WATER 150 ML IV SCH (10:29)
[2023-08-24] MEDS: CALCITONIN,SALMON,SYNTHETIC 200 UNITS/ML 2 ML VIAL SQ SCH (10:39)
[2023-08-24 11:26] VITALS: BP 141/48; PULSE 82; RESP 17; TEMP 98
[2023-08-24 14:17] LABS: GLUCOMETER DEV NAME(LOC) 5N.2C; GLUCOSE,POINT OF CARE 206 MG/DL (70-110)
[2023-08-24 15:00] VITALS: BP 119/86; PULSE 73; RESP 16; TEMP 97.7
[2023-08-24 17:56] LABS: GLUCOMETER DEV NAME(LOC) 5N.1D; GLUCOSE,POINT OF CARE 118 MG/DL (70-110)
[2023-08-24 20:18] VITALS: BP 118/90; PULSE 68; RESP 16; TEMP 98.3
[2023-08-24 21:41] LABS: GLUCOMETER DEV NAME(LOC) 5N.1D; GLUCOSE,POINT OF CARE 196 MG/DL (70-110)
[2023-08-25] VITALS (8 sets, daily range): BP systolic 110–140; BP diastolic 68–89; PULSE 72–84; RESP 16–20; TEMP 98–100.1
[2023-08-25 05:31] LABS: GLUCOMETER DEV NAME(LOC) 5N.1D; GLUCOSE,POINT OF CARE 129 MG/DL (70-110)
[2023-08-25] MEDS ORDERED: SODIUM CHLORIDE 0.9% 250 ML IV ONE (06:42)
[2023-08-25 07:24] LABS: ANION GAP 11 mmol/L (8-16); CALCIUM, TOTAL 10.1 mg/dL (8.8-10.5); CARBON DIOXIDE 23 mmol/L (22-29); CHLORIDE 120 mmol/L (98-107); CREATININE 0.97 mg/dL (0.60-1.30); GLOMERULAR FILTR. RATE CALC > 60 mL/min (>60); GLUCOSE,RANDOM 155 mg/dL (70-110); PHOSPHORUS 1.9 mg/dL (2.5-4.9); POTASSIUM 3.4 mmol/L (3.5-5.1); SODIUM SERUM 154 mmol/L (136-145); UREA NITROGEN, BLOOD 21 mg/dL (7-18)
[2023-08-25] MEDS ORDERED: MAGNESIUM HYDROXIDE SUSPENSION 30 ML UDCUP PO PRN (11:30)
[2023-08-25] MEDS: DEXTROSE 5%-WATER 1,000 ML IV SCH (11:44)
[2023-08-25 12:28] LABS: ANION GAP 11 mmol/L (8-16); CALCIUM, TOTAL 9.6 mg/dL (8.8-10.5); CARBON DIOXIDE 22 mmol/L (22-29); CHLORIDE 122 mmol/L (98-107); CREATININE 0.89 mg/dL (0.60-1.30); GLOMERULAR FILTR. RATE CALC > 60 mL/min (>60); GLUCOSE,RANDOM 155 mg/dL (70-110); PHOSPHORUS 1.8 mg/dL (2.5-4.9); POTASSIUM 3.2 mmol/L (3.5-5.1); SODIUM SERUM 155 mmol/L (136-145); UREA NITROGEN, BLOOD 18 mg/dL (7-18)
[2023-08-25 12:30] LABS: GLUCOMETER DEV NAME(LOC) 5N.1D; GLUCOSE,POINT OF CARE 147 MG/DL (70-110)
[2023-08-25] MEDS: DEXTROSE 50%-WATER 25 GM/50 ML SYRINGE IVP PRN (13:07)
[2023-08-25] MEDS: BISACODYL 10 MG RECTAL RECTAL SUPPOSITORY PR PRN (13:48)
[2023-08-25 14:01] LABS: GLUCOMETER DEV NAME(LOC) 5N.1D; GLUCOSE,POINT OF CARE 64 MG/DL (70-110)
[2023-08-25 14:01] LABS: GLUCOMETER DEV NAME(LOC) 5N.1D; GLUCOSE,POINT OF CARE 146 MG/DL (70-110)
[2023-08-25] MEDS ORDERED: POTASSIUM PHOS,M-BASIC-D-BASIC 20 MEQ in DEXTROSE 5%-WATER 100 ML IV ONE (14:30)
[2023-08-25] MEDS: SODIUM PHOS,M-BASIC-D-BASIC 10 MMOL in DEXTROSE 5%-WATER 100 ML IV ONE (17:24)
[2023-08-25 18:58] LABS: ANION GAP 10 mmol/L (8-16); CALCIUM, TOTAL 9.7 mg/dL (8.8-10.5); CARBON DIOXIDE 23 mmol/L (22-29); CHLORIDE 119 mmol/L (98-107); CREATININE 0.94 mg/dL (0.60-1.30); GLOMERULAR FILTR. RATE CALC > 60 mL/min (>60); GLUCOSE,RANDOM 211 mg/dL (70-110); PHOSPHORUS 2.5 mg/dL (2.5-4.9); POTASSIUM 3.5 mmol/L (3.5-5.1); SODIUM SERUM 152 mmol/L (136-145); UREA NITROGEN, BLOOD 18 mg/dL (7-18)
[2023-08-25 19:41] LABS: GLUCOMETER DEV NAME(LOC) 5N.1D; GLUCOSE,POINT OF CARE 159 MG/DL (70-110)
[2023-08-26] VITALS (9 sets, daily range): BP systolic 107–134; BP diastolic 52–86; PULSE 69–102; RESP 16–25; TEMP 98.2–101
[2023-08-26 00:11] LABS: GLUCOMETER DEV NAME(LOC) 5N.1D; GLUCOSE,POINT OF CARE 140 MG/DL (70-110)
[2023-08-26 06:26] LABS: BAND NEUTROPHILS % (MANUAL) 0 % (0-5)
[2023-08-26 06:30] LABS: HEMATOCRIT 36.9 % (41-53); MEAN CORPUSCULAR HEMOGLOBIN 30.5 pg (26.0-34.0); MEAN CORPUSCULAR HGB CONC 32.6 G/dL (31.0-37.0); MEAN CORPUSCULAR VOLUME 93 fL (80-100); PLATELET COUNT (AUTO) 231 K/uL (150-450); RED BLOOD CELL COUNT(AUTO) 3.95 MIL/uL (4.50-5.90); WHITE BLOOD COUNT (AUTO) 9.4 K/uL (4.5-11.0)
[2023-08-26 06:51] LABS: ANION GAP 12 mmol/L (8-16); CALCIUM, TOTAL 10.1 mg/dL (8.8-10.5); CARBON DIOXIDE 22 mmol/L (22-29); CHLORIDE 117 mmol/L (98-107); CREATININE 0.84 mg/dL (0.60-1.30); GLOMERULAR FILTR. RATE CALC > 60 mL/min (>60); GLUCOSE,RANDOM 165 mg/dL (70-110); POTASSIUM 3.2 mmol/L (3.5-5.1); SODIUM SERUM 151 mmol/L (136-145); UREA NITROGEN, BLOOD 18 mg/dL (7-18)
[2023-08-26 08:01] LABS: GLUCOMETER DEV NAME(LOC) 5N.1D; GLUCOSE,POINT OF CARE 145 MG/DL (70-110)
[2023-08-26 09:23] LABS: LYMPHOCYTES % (MANUAL) 19 % (22-44); MONOCYTES % (MANUAL) 5 % (2-9); SEGMENTED NEUTROPHILS % 76 % (40-70); TOTAL CELLS COUNTED 100
[2023-08-26] MEDS: POTASSIUM PHOS,M-BASIC-D-BASIC 20 MEQ in DEXTROSE 5%-WATER 100 ML IV ONE (09:23)
[2023-08-26 12:01] LABS: GLUCOMETER DEV NAME(LOC) 5N.1D; GLUCOSE,POINT OF CARE 165 MG/DL (70-110)
[2023-08-26 18:33] LABS: CALCIUM, TOTAL 10.2 mg/dL (8.8-10.5); CREATININE 1.24 mg/dL (0.60-1.30); PHOSPHORUS 3.1 mg/dL (2.5-4.9); POTASSIUM 3.5 mmol/L (3.5-5.1)
[2023-08-26] MEDS: QUEtiapine FUMARATE 25 MG TABLET PO SCH (21:42)
[2023-08-26 21:50] LABS: GLUCOMETER DEV NAME(LOC) 5S.1B; GLUCOSE,POINT OF CARE 150 MG/DL (70-110)
[2023-08-26 23:16] LABS: GLUCOMETER DEV NAME(LOC) 5N.1D; GLUCOSE,POINT OF CARE 139 MG/DL (70-110)
[2023-08-27] VITALS (8 sets, daily range): BP systolic 100–152; BP diastolic 54–86; PULSE 69–83; RESP 20; TEMP 97.8–100.3
[2023-08-27 06:19] LABS: ANION GAP 8 mmol/L (8-16); CALCIUM, TOTAL 11.1 mg/dL (8.8-10.5); CARBON DIOXIDE 24 mmol/L (22-29); CHLORIDE 113 mmol/L (98-107); CREATININE 0.88 mg/dL (0.60-1.30); GLOMERULAR FILTR. RATE CALC > 60 mL/min (>60); GLUCOSE,RANDOM 153 mg/dL (70-110); PHOSPHORUS 2.7 mg/dL (2.5-4.9); POTASSIUM 3.4 mmol/L (3.5-5.1); SODIUM SERUM 145 mmol/L (136-145); UREA NITROGEN, BLOOD 20 mg/dL (7-18)
[2023-08-27 06:36] LABS: GLUCOMETER DEV NAME(LOC) 5N.1D; GLUCOSE,POINT OF CARE 145 MG/DL (70-110)
[2023-08-27] MEDS: CALCITONIN,SALMON,SYNTHETIC 200 UNITS/ML 2 ML VIAL SQ SCH (12:25)
[2023-08-27] MEDS ORDERED: SODIUM CHLORIDE 0.9% 250 ML IV ONE (15:59)
[2023-08-28] VITALS (9 sets, daily range): BP systolic 104–138; BP diastolic 59–95; PULSE 61–83; RESP 17–21; TEMP 97.9–98.7
[2023-08-28 05:31] LABS: GLUCOMETER DEV NAME(LOC) 5N.1D; GLUCOSE,POINT OF CARE 148 MG/DL (70-110)
[2023-08-28 05:31] LABS: GLUCOMETER DEV NAME(LOC) 5N.2C; GLUCOSE,POINT OF CARE 161 MG/DL (70-110)
[2023-08-28 05:31] LABS: GLUCOMETER DEV NAME(LOC) 5N.1D; GLUCOSE,POINT OF CARE 157 MG/DL (70-110)
[2023-08-28 06:45] LABS: ANION GAP 7 mmol/L (8-16); CALCIUM, TOTAL 10.3 mg/dL (8.8-10.5); CARBON DIOXIDE 25 mmol/L (22-29); CHLORIDE 114 mmol/L (98-107); CREATININE 0.93 mg/dL (0.60-1.30); GLOMERULAR FILTR. RATE CALC > 60 mL/min (>60); GLUCOSE,RANDOM 136 mg/dL (70-110); PHOSPHORUS 2.5 mg/dL (2.5-4.9); POTASSIUM 3.7 mmol/L (3.5-5.1); SODIUM SERUM 146 mmol/L (136-145); UREA NITROGEN, BLOOD 23 mg/dL (7-18)
[2023-08-28 22:21] LABS: GLUCOMETER DEV NAME(LOC) 5N.1D; GLUCOSE,POINT OF CARE 126 MG/DL (70-110)
[2023-08-28 22:21] LABS: GLUCOMETER DEV NAME(LOC) 5N.1D; GLUCOSE,POINT OF CARE 148 MG/DL (70-110)
[2023-08-28 22:21] LABS: GLUCOMETER DEV NAME(LOC) 5N.1D; GLUCOSE,POINT OF CARE 156 MG/DL (70-110)
[2023-08-29] VITALS (7 sets, daily range): BP systolic 99–133; BP diastolic 55–91; PULSE 70–79; RESP 16–19; TEMP 97.5–99.8
[2023-08-29 12:20] LABS: GLUCOMETER DEV NAME(LOC) 5S.2D; GLUCOSE,POINT OF CARE 142 MG/DL (70-110)
[2023-08-29 12:20] LABS: GLUCOMETER DEV NAME(LOC) 5S.2D; GLUCOSE,POINT OF CARE 139 MG/DL (70-110)
[2023-08-29 12:35] LABS: GLUCOMETER DEV NAME(LOC) 5N.2C; GLUCOSE,POINT OF CARE 160 MG/DL (70-110)
[2023-08-29] MEDS ORDERED: ASPI81TA39 PO (16:39)
[2023-08-29 21:30] LABS: GLUCOMETER DEV NAME(LOC) 5S.2D; GLUCOSE,POINT OF CARE 122 MG/DL (70-110)
[2023-08-29 21:31] LABS: GLUCOMETER DEV NAME(LOC) 5S.2D; GLUCOSE,POINT OF CARE 171 MG/DL (70-110)
[2023-08-30] VITALS (10 sets, daily range): BP systolic 95–138; BP diastolic 58–88; PULSE 64–75; RESP 18–20; TEMP 97–98.9
[2023-08-30 07:09] LABS: BASOPHILS % (AUTO) 0.6 % (0.0-2.0); EOSINOPHILS % (AUTO) 2.6 % (1.0-6.0); HEMATOCRIT 35.1 % (41-53); HEMOGLOBIN 11.7 g/dL (13.5-17.5); LYMPHOCYTES # (AUTO) 1.2 K/uL (1.0-4.8); LYMPHOCYTES % (AUTO) 17.4 % (22.0-44.0); MEAN CORPUSCULAR HEMOGLOBIN 30.5 pg (26.0-34.0); MEAN CORPUSCULAR HGB CONC 33.3 G/dL (31.0-37.0); MEAN CORPUSCULAR VOLUME 92 fL (80-100); MONOCYTES # (AUTO) 0.6 K/uL (0.1-1.0); MONOCYTES % (AUTO) 8.7 % (2.0-9.0); NEUTROPHILS # (AUTO) 4.8 K/uL (1.8-7.7); NEUTROPHILS % (AUTO) 70.7 % (40.0-70.0); PLATELET COUNT (AUTO) 280 K/uL (150-450); RED BLOOD CELL COUNT(AUTO) 3.84 MIL/uL (4.50-5.90); RED CELL DISTRIBUTION WIDTH 14.2 % (11.5-14.5); WHITE BLOOD COUNT (AUTO) 6.8 K/uL (4.5-11.0)
[2023-08-30 07:21] LABS: ANION GAP 7 mmol/L (8-16); CALCIUM, TOTAL 11.2 mg/dL (8.8-10.5); CARBON DIOXIDE 26 mmol/L (22-29); CHLORIDE 108 mmol/L (98-107); CREATININE 0.87 mg/dL (0.60-1.30); GLOMERULAR FILTR. RATE CALC > 60 mL/min (>60); GLUCOSE,RANDOM 119 mg/dL (70-110); PHOSPHORUS 3.1 mg/dL (2.5-4.9); POTASSIUM 3.8 mmol/L (3.5-5.1); SODIUM SERUM 141 mmol/L (136-145); UREA NITROGEN, BLOOD 24 mg/dL (7-18)
[2023-08-30 11:41] LABS: GLUCOMETER DEV NAME(LOC) 5S.2D; GLUCOSE,POINT OF CARE 120 MG/DL (70-110)
[2023-08-31] VITALS (8 sets, daily range): BP systolic 87–158; BP diastolic 50–79; PULSE 64–89; RESP 18–20; TEMP 97.4–98.4
[2023-08-31 02:40] LABS: GLUCOMETER DEV NAME(LOC) 5S.2D; GLUCOSE,POINT OF CARE 116 MG/DL (70-110)
[2023-08-31 02:40] LABS: GLUCOMETER DEV NAME(LOC) 5S.2D; GLUCOSE,POINT OF CARE 156 MG/DL (70-110)
[2023-08-31 02:40] LABS: GLUCOMETER DEV NAME(LOC) 5S.2D; GLUCOSE,POINT OF CARE 133 MG/DL (70-110)
[2023-08-31 07:11] LABS: GLUCOMETER DEV NAME(LOC) 5S.2D; GLUCOSE,POINT OF CARE 148 MG/DL (70-110)
[2023-08-31 18:21] LABS: GLUCOMETER DEV NAME(LOC) 5S.2D; GLUCOSE,POINT OF CARE 170 MG/DL (70-110)
[2023-08-31 18:21] LABS: GLUCOMETER DEV NAME(LOC) 5S.2D; GLUCOSE,POINT OF CARE 115 MG/DL (70-110)
[2023-09-01 00:06] LABS: GLUCOMETER DEV NAME(LOC) 5S.1B; GLUCOSE,POINT OF CARE 119 MG/DL (70-110)
[2023-09-01 03:42] VITALS: BP 155/76; PULSE 75; RESP 18; TEMP 98.2
[2023-09-01 05:35] LABS: GLUCOMETER DEV NAME(LOC) 5S.1B; GLUCOSE,POINT OF CARE 114 MG/DL (70-110)
[2023-09-01 08:53] VITALS: BP 136/95; PULSE 78; RESP 18; TEMP 97.7
[2023-09-01 11:29] VITALS: BP 122/86; PULSE 81; RESP 18; TEMP 97.4
[2023-09-01 22:06] LABS: GLUCOMETER DEV NAME(LOC) 5S.1B; GLUCOSE,POINT OF CARE 147 MG/DL (70-110)
== END 2023-09-01 14:41 | DRG 64 ==
LOC: EMS 17:59 → EDBD 17:59 → ICUN 19:02 → ICU 21:08 → 5N 08-21 17:55
PROVIDERS: ADMIT Internal Medicine; ATTEND Internal Medicine
PROC: 5A1945Z Respiratory Ventilation, 24-96 Consecutive Hours (ICD-10-PCS; principal; 2023-08-14)
PROC: 0BH17EZ Insertion of Endotracheal Airway into Trachea, Via Natural or Artificial Opening (ICD-10-PCS; 2023-08-14)
PROC: 05H933Z Insertion of Infusion Device into Right Brachial Vein, Percutaneous Approach (ICD-10-PCS; 2023-08-25)
PROC: B54MZZA Ultrasonography of Right Upper Extremity Veins, Guidance (ICD-10-PCS; 2023-08-25)
DX: I61.0 Nontraumatic intracerebral hemorrhage in hemisphere, subcortical (principal); J96.00 Acute respiratory failure, unspecified whether with hypoxia or hypercapnia; N17.9 Acute kidney failure, unspecified; G81.94 Hemiplegia, unspecified affecting left nondominant side; G91.1 Obstructive hydrocephalus; E87.0 Hyperosmolality and hypernatremia; G93.40 Encephalopathy, unspecified; I16.1 Hypertensive emergency; Z99.11 Dependence on respirator [ventilator] status; I61.5 Nontraumatic intracerebral hemorrhage, intraventricular; S01.81XA Laceration without foreign body of other part of head, initial encounter; R45.87 Impulsiveness; E87.6 Hypokalemia; R49.0 Dysphonia; N40.0 Benign prostatic hyperplasia without lower urinary tract symptoms; E83.39 Other disorders of phosphorus metabolism; E83.52 Hypercalcemia; R13.10 Dysphagia, unspecified; E78.5 Hyperlipidemia, unspecified; E11.9 Type 2 diabetes mellitus without complications; I10 Essential (primary) hypertension; Z79.899 Other long term (current) drug therapy; Z78.1 Physical restraint status; Y93.89 Activity, other specified; Y92.89 Other specified places as the place of occurrence of the external cause; Y99.8 Other external cause status; Z86.73 Personal history of transient ischemic attack (TIA), and cerebral infarction without residual deficits
CPT/HCPCS: 36245; 36569; 36600; 70450; 70496; 70498; 71045; 76937; 80048; 80053; 80307; 81001; 82397; 82805; 82948; 82962; 83036; 83735; 83970; 84100; 84132; 84484; 85007; 85025; 85027; 85610; 85730; 86850; 86870; 86900; 86901; 87081; 92526; 92610; 93005; 94002; 94003; 94640; 97110; 97112; 97163; 97167; 97530; 97535; 99291; J0360; J0630; J0696; J0712; J1956; J2060; J2150; J2270; J2704; J3480; J3490; J7030; J7050; J7060; Q9967; 36415-L1; 36415-TC; J7613; X7700